=== PATIENT | female | born 1950 | race Caucasian/White ===

== ENCOUNTER 2019-05-02 23:50 | Inpatient (IN) ==
[2019-05-03] MEDS: ZOFRAN IV ONE ×2 (00:28→00:58)
[2019-05-03] MEDS ORDERED: NS 1,000 ML IV ONE (00:28)
[2019-05-03] MEDS ORDERED: MORPHINE IM ONE (00:52)
[2019-05-03] MEDS ORDERED: PROTONIX PO ONE (01:38)
[2019-05-03] MEDS ORDERED: G.I. COCKTAIL PO ONE (01:39)
--- NOTE | 2019-05-03 02:08 | PROVIDER DOCUMENTATION ---
This chart was entered by Luz Maria Raymond Scribe, acting as scribe for Leta García MD. HPI-Abdominal Pain/GI Problem - General Source: patient - History of Present Illness-ABD Nature of Presenting Problems: 68 y/o female presents to ED with intermittent, burning epigastric pain and N/V/D onset 2 months ago. Pt reports her symptoms became constant and worse this evening. Pt states she has had a colon resection due to diverticulitis with Dr. Aranda. Pt is alert and oriented. Abdominal Pain Onset Location: reports: epigastric Pain Radiation: reports: no radiation Quality of Pain: reports: burning Severity in ED: reports: severe Onset/Duration: reports: other (2 months ago) Timing: reports: intermittent Activities at Onset: reports: none Exposure to sick contacts?: No Modifying Factors: worse with: palpation Associated Symptoms: reports: diarrhea, nausea, vomiting, other (epigastric pain) Last BM: unsure Dark Stools Present?: reports: none noticed Rectal Bleeding: reports: none Rectal Pain: reports: none Similar Symptoms Previously?: Yes Recently seen or treated by another doctor?: No <Leta García - Last Filed: 05/03/19 02:08> <Lui Olmedo - Last Filed: 05/03/19 06:58> <Molly Quiroz - Last Filed: 05/03/19 10:41> - General Chief Complaint: Abdominal Pain Stated Complaint: PAIN IN MID ABDOMEN/BACK, NAUSEATED Time Seen by Provider: 05/03/19 00:00 Allergies/Adverse Reactions: Patient Allergies Allergy/AdvReac Type Severity Reaction Status Date / Time codeine Allergy NAUSEA Verified 05/03/19 00:14 Review of Systems - Adult - REVIEW OF SYSTEMS - ADULT Constitutional: denies: chills, fever Eyes: reports: no symptoms reported Ears, Nose, Mouth & Throat: reports: no symptoms reported Cardiovascular: denies: chest pain, palpitations Respiratory: denies: cough, shortness of breath Gastrointestinal: reports: abdominal pain, diarrhea, nausea, vomiting Genitourinary: reports: no symptoms reported Musculoskeletal: reports: no symptoms reported Integumentary: reports: no symptoms reported Neurological: reports: no symptoms reported Psychiatric: reports: no symptoms reported Endocrine: reports: no symptoms reported Hematologic/Lymphatic: reports: no symptoms reported Allergic/Immunologic: reports: no symptoms reported All Other Systems: Reviewed and Negative <Leta García - Last Filed: 05/03/19 02:08> Past History - Adult - PAST MEDICAL HISTORY-ADULT Review of Records: reports: Old Records Reviewed, Nursing Assessment Review, Medications Reviewed Major Childhood Illnesses: reports: denies history Cardiovascular: reports: denies history Respiratory: reports: asthma Gastrointestinal: reports: denies history Obstetrical/Gynecological: reports: endometriosis Genitourinary: reports: denies history. denies: kidney stones Musculoskeletal: reports: denies history Neurological: reports: meningitis Endocrine/Immune: reports: denies history Other Conditions: reports: denies history - PRIOR SURGERIES/PROCEDURES Surgical/Procedure History: reports: appendectomy, hysterectomy (with oopherectomy and bladder tacking.), BTL, bowel surgery (colon resection) - IMMUNIZATION STATUS Childhood Immunizations: See Nurse Assessment Flu Vaccine: See Nurse Assessment - FAMILY HISTORY Family History: reviewed, not pertinent - SOCIAL HISTORY Smoking: quit greater than 1 year Substance Use: none/never Alcohol Use Frequency: occasionally Living Situation: family <Leta García - Last Filed: 05/03/19 02:08> Physical Exam-General - PHYSICAL EXAM-ADULT Initial Vital Signs Reviewed: Yes - CONSTITUTIONAL General Appearance: appears well, alert, no apparent distress - EYES Eyes: PERRL/EOMI, pink conjunctivae - HEAD, EARS, NOSE, MOUTH & THROAT HENMT: normocephalic/atraumatic, moist mucous membranes, normal ENT inspection - NECK Neck: non-tender, full range of motion - RESPIRATORY Respiratory: chest non-tender, lungs clear, normal breath sounds - CARDIOVASCULAR Cardiovascular: normal peripheral pulses, regular rate, rhythm - GASTROINTESTINAL (ABDOMEN) Abdominal Exam: normal bowel sounds, soft, tenderness (epigastric) - MUSCULOSKELETAL Back Exam: normal inspection, no CVA tenderness, no vertebral tenderness Extremity: normal range of motion, non-tender - SKIN Integumentary: normal color, warm/dry - NEUROLOGIC Neurologic: grossly normal - PSYCHIATRIC Psych/Mental Status: normal mood/affect, normal thought content, normal thought process, oriented x 3 <Leta García - Last Filed: 05/03/19 02:08> Progress - PLAN OF CARE/RESULTS Progress/Plan/Lab Results: Vital Signs - 8 hr 05/02/19 23:52 Temperature 97.9 F Pulse Rate 74 Respiratory Rate 20 Blood Pressure 170/70 O2 Sat by Pulse Oximetry 95 - REASSESSMENT Reassessment #1 Time Reassessed: 01:37 Status: unchanged (Given Im morphine and zofran. Still epigastric pain. Will give GI cocktail and protonix po) - EKG 1 Time of EKG reading by physician:: 23:59 EKG Read and Signed by:: Leta García EKG Interpretation (*Must complete 3 of following elements*): Abnormal Rate: 67 Rhythm: NSR [place]: normal QRS: other (low voltage QRS; cannot rule out anterior infarct) [place] Interval: normal ST Wave: normal - CHANGE OF SHIFT REPORT (ED Provider) 1 Report Given and Care Transferred to:: Dr Olmedo at the end of my shift Time of Transfer: 02:01 Items Pending: Labs, CT/MRI Results <Leta García - Last Filed: 05/03/19 02:08> - PLAN OF CARE/RESULTS Progress/Plan/Lab Results: Vital Signs - 8 hr 05/02/19 23:52 05/03/19 00:06 05/03/19 00:15 Temperature 97.9 F Pulse Rate 74 78 70 Respiratory Rate 20 26 H 18 Blood Pressure 170/70 O2 Sat by Pulse Oximetry 95 96 97 05/03/19 00:18 05/03/19 00:30 05/03/19 00:45 Temperature Pulse Rate 70 73 71 Respiratory Rate 14 18 13 Blood Pressure 181/72 O2 Sat by Pulse Oximetry 98 99 99 05/03/19 00:48 05/03/19 01:00 05/03/19 01:02 Temperature Pulse Rate 69 74 72 Respiratory Rate 19 24 15 Blood Pressure 167/83 169/91 O2 Sat by Pulse Oximetry 99 97 05/03/19 01:15 05/03/19 01:18 05/03/19 01:30 Temperature Pulse Rate 66 63 75 Respiratory Rate 13 15 14 Blood Pressure 166/88 O2 Sat by Pulse Oximetry 99 97 96 05/03/19 01:45 05/03/19 01:49 05/03/19 02:00 Temperature Pulse Rate 81 77 80 Respiratory Rate 21 18 13 Blood Pressure O2 Sat by Pulse Oximetry 96 97 96 05/03/19 02:15 05/03/19 02:30 05/03/19 02:45 Temperature Pulse Rate 77 74 71 Respiratory Rate 13 14 22 Blood Pressure O2 Sat by Pulse Oximetry 96 94 L 88 L 05/03/19 03:00 05/03/19 03:15 05/03/19 03:30 Temperature Pulse Rate 71 69 71 Respiratory Rate 24 22 13 Blood Pressure O2 Sat by Pulse Oximetry 89 L 87 L 95 05/03/19 03:45 05/03/19 04:00 05/03/19 04:15 Temperature Pulse Rate 68 61 75 Respiratory Rate 15 16 18 Blood Pressure O2 Sat by Pulse Oximetry 97 98 96 05/03/19 04:30 05/03/19 04:45 05/03/19 05:00 Temperature Pulse Rate 66 68 78 Respiratory Rate 16 26 H 19 Blood Pressure O2 Sat by Pulse Oximetry 95 94 L 93 L Laboratory Results - last 24 hr 05/03/19 05/03/19 05/03/19 04:37 05:02 05:02 WBC 6.67 RBC 5.48 H Hgb 14.9 Hct 46.2 MCV 84.3 MCH 27.2 MCHC 32.3 L RDW Std Deviation 13.2 Plt Count 225 MPV 9.4 Immature Gran % (Auto) 0.3 Neut % (Auto) 87.5 H Lymph % (Auto) 7.3 L [place] % (Auto) 4.0 Eos % (Auto) 0.6 Baso % (Auto) 0.3 Immature Gran # (Auto) 0.02 Neut # (Auto) 5.83 Lymph # (Auto) 0.49 L [place] # (Auto) 0.27 Eos # (Auto) 0.04 Baso # (Auto) 0.02 Sodium 139 Potassium 3.9 Chloride 100 Carbon Dioxide 21 L Anion Gap 18 BUN 7 L Creatinine 0.8 Estimated GFR/1.73 m2 > 60 BUN/Creatinine Ratio 9 Glucose 132 H Calculated Osmolality 277 Calcium 9.1 Total Bilirubin 0.44 AST 17 ALT 17 Alkaline Phosphatase 95 Creatine Kinase 40 Troponin T Total Protein 6.4 Albumin 4.2 Globulin 2.2 Albumin/Globulin Ratio 1.9 Amylase 46 Lipase 17 Urine Source CLEAN CATCH Urine Color YELLOW Urine Turbidity CLEAR Urine pH 8.0 Ur Specific [place] 1.015 Urine Protein NEGATIVE Ur Glucose (Stick) NEGATIVE Ur Ketones (Stick) TRACE A Urine Blood SMALL A Urine Nitrite NEGATIVE Urine Bilirubin NEGATIVE Urobilinogen Dipstick NORMAL Urine Leukocytes NEGATIVE Urine WBC (Auto) <10 Urine RBC (Auto) <10 U Epithel Cells (Auto) <10 Urine Bacteria (Auto) NEGATIVE 05/03/19 05:02 WBC RBC Hgb Hct MCV MCH MCHC RDW Std Deviation Plt Count MPV Immature Gran % (Auto) Neut % (Auto) Lymph % (Auto) [place] % (Auto) Eos % (Auto) Baso % (Auto) Immature Gran # (Auto) Neut # (Auto) Lymph # (Auto) [place] # (Auto) Eos # (Auto) Baso # (Auto) Sodium Potassium Chloride Carbon Dioxide Anion Gap BUN Creatinine Estimated GFR/1.73 m2 BUN/Creatinine Ratio Glucose Calculated Osmolality Calcium Total Bilirubin AST ALT Alkaline Phosphatase Creatine Kinase Troponin T < 0.010 Total Protein Albumin Globulin Albumin/Globulin Ratio Amylase Lipase Urine Source Urine Color Urine Turbidity Urine pH Ur Specific [place] Urine Protein Ur Glucose (Stick) Ur Ketones (Stick) Urine Blood Urine Nitrite Urine Bilirubin Urobilinogen Dipstick Urine Leukocytes Urine WBC (Auto) Urine RBC (Auto) U Epithel Cells (Auto) Urine Bacteria (Auto) Orders Category Date Time Status Saline Loc DIRECTED Care 05/03/19 00:27 Active NPO Diet 05/03/19 00:[address] ABD/PELVIS W/IV CONT ONLY [CT] Stat Exams 05/03/19 01:21 Completed US GB < RUQ (LIMITED) [US] Stat Exams 05/03/19 06:45 Ordered AMYLASE [CHEM] Stat Lab 05/03/19 05:02 Completed CBC WITH ELECTRONIC DIFF [HEME] Stat Lab 05/03/19 05:02 Completed CK PROFILE [SP CHEM] Stat Lab 05/03/19 05:02 Completed COMPREHENSIVE METABOLIC PANEL [CHEM] Stat Lab 05/03/19 05:02 Completed LIPASE [CHEM] Stat Lab 05/03/19 05:02 Completed TROPONIN T Stat Lab 05/03/19 05:02 Completed URINALYSIS W/POSS RFLX CULT [URINALYSIS] Stat Lab 05/03/19 04:37 Completed 0.9% Sodium Chloride Inj [Ns] 1,000 ml Med 05/03/19 00:28 Discontinued IV 999 mls/hr Hydromorphone [Dilaudid] Med 05/03/19 04:51 Discontinued 1 mg IV NOW ONE Lido/Gonzalez Alk/Al&mg Hydrox [G.i. Cocktail] Med 05/03/19 01:39 Discontinued 30 ml PO NOW ONE Morphine Med 05/03/19 00:52 Discontinued 4 mg IM NOW ONE Ondansetron [Zofran] Med 05/03/19 00:28 Discontinued 8 mg IV NOW ONE Pantoprazole [Protonix] Med 05/03/19 01:38 Discontinued 40 mg PO NOW ONE EKG [EKG] Stat Ther 05/03/19 00:27 Draft Result Diagrams: 05/03/19 05:02 05/03/19 05:02 - CHANGE OF SHIFT REPORT (ED Provider) 2 Report Given and Care Transferred to:: Dr Quiroz Time of Transfer: 07:00 Items Pending: Labs, Ultrasound Results <Lui Olmedo - Last Filed: 05/03/19 06:58> - PLAN OF CARE/RESULTS Progress/Plan/Lab Results: Vital Signs - 8 hr 05/03/19 02:45 05/03/19 03:00 05/03/19 03:15 Pulse Rate 71 71 69 Respiratory Rate 22 24 22 O2 Sat by Pulse Oximetry 88 L 89 L 87 L 05/03/19 03:30 05/03/19 03:45 05/03/19 04:00 Pulse Rate 71 68 61 Respiratory Rate 13 15 16 O2 Sat by Pulse Oximetry 95 97 98 05/03/19 04:15 05/03/19 04:30 05/03/19 04:45 Pulse Rate 75 66 68 Respiratory Rate 18 16 26 H O2 Sat by Pulse Oximetry 96 95 94 L 05/03/19 05:00 Pulse Rate 78 Respiratory Rate 19 O2 Sat by Pulse Oximetry 93 L Laboratory Results - last 24 hr 05/03/19 05/03/19 05/03/19 04:37 05:02 05:02 WBC 6.67 RBC 5.48 H Hgb 14.9 Hct 46.2 MCV 84.3 MCH 27.2 MCHC 32.3 L RDW Std Deviation 13.2 Plt Count 225 MPV 9.4 Immature Gran % (Auto) 0.3 Neut % (Auto) 87.5 H Lymph % (Auto) 7.3 L [place] % (Auto) 4.0 Eos % (Auto) 0.6 Baso % (Auto) 0.3 Immature Gran # (Auto) 0.02 Neut # (Auto) 5.83 Lymph # (Auto) 0.49 L [place] # (Auto) 0.27 Eos # (Auto) 0.04 Baso # (Auto) 0.02 Sodium 139 Potassium 3.9 Chloride 100 Carbon Dioxide 21 L Anion Gap 18 BUN 7 L Creatinine 0.8 Estimated GFR/1.73 m2 > 60 BUN/Creatinine Ratio 9 Glucose 132 H Calculated Osmolality 277 Calcium 9.1 Total Bilirubin 0.44 AST 17 ALT 17 Alkaline Phosphatase 95 Creatine Kinase 40 Troponin T Total Protein 6.4 Albumin 4.2 Globulin 2.2 Albumin/Globulin Ratio 1.9 Amylase 46 Lipase 17 Urine Source CLEAN CATCH Urine Color YELLOW Urine Turbidity CLEAR Urine pH 8.0 Ur Specific [place] 1.015 Urine Protein NEGATIVE Ur Glucose (Stick) NEGATIVE Ur Ketones (Stick) TRACE A Urine Blood SMALL A Urine Nitrite NEGATIVE Urine Bilirubin NEGATIVE Urobilinogen Dipstick NORMAL Urine Leukocytes NEGATIVE Urine WBC (Auto) <10 Urine RBC (Auto) <10 U Epithel Cells (Auto) <10 Urine Bacteria (Auto) NEGATIVE 05/03/19 05:02 WBC RBC Hgb Hct MCV MCH MCHC RDW Std Deviation Plt Count MPV Immature Gran % (Auto) Neut % (Auto) Lymph % (Auto) [place] % (Auto) Eos % (Auto) Baso % (Auto) Immature Gran # (Auto) Neut # (Auto) Lymph # (Auto) [place] # (Auto) Eos # (Auto) Baso # (Auto) Sodium Potassium Chloride Carbon Dioxide Anion Gap BUN Creatinine Estimated GFR/1.73 m2 BUN/Creatinine Ratio Glucose Calculated Osmolality Calcium Total Bilirubin AST ALT Alkaline Phosphatase Creatine Kinase Troponin T < 0.010 Total Protein Albumin Globulin Albumin/Globulin Ratio Amylase Lipase Urine Source Urine Color Urine Turbidity Urine pH Ur Specific [place] Urine Protein Ur Glucose (Stick) Ur Ketones (Stick) Urine Blood Urine Nitrite Urine Bilirubin Urobilinogen Dipstick Urine Leukocytes Urine WBC (Auto) Urine RBC (Auto) U Epithel Cells (Auto) Urine Bacteria (Auto) Orders Category Date Time Status Saline Loc DIRECTED Care 05/03/19 00:27 Active NPO Diet 05/03/19 00:[address] ABD/PELVIS W/IV CONT ONLY [CT] Stat Exams 05/03/19 01:21 Completed US GB < RUQ (LIMITED) [US] Stat Exams 05/03/19 06:45 Completed AMYLASE [CHEM] Stat Lab 05/03/19 05:02 Completed CBC WITH ELECTRONIC DIFF [HEME] Stat Lab 05/03/19 05:02 Completed CK PROFILE [SP CHEM] Stat Lab 05/03/19 05:02 Completed COMPREHENSIVE METABOLIC PANEL [CHEM] Stat Lab 05/03/19 05:02 Completed LIPASE [CHEM] Stat Lab 05/03/19 05:02 Completed TROPONIN T Stat Lab 05/03/19 05:02 Completed URINALYSIS W/POSS RFLX CULT [URINALYSIS] Stat Lab 05/03/19 04:37 Completed 0.9% Sodium Chloride Inj [Ns] 1,000 ml Med 05/03/19 00:28 Discontinued IV 999 mls/hr Hydromorphone [Dilaudid] Med 05/03/19 04:51 Discontinued 1 mg IV NOW ONE Lido/Gonzalez Alk/Al&mg Hydrox [G.i. Cocktail] Med 05/03/19 01:39 Discontinued 30 ml PO NOW ONE Morphine Med 05/03/19 00:52 Discontinued 4 mg IM NOW ONE Ondansetron [Zofran] Med 05/03/19 08:37 Discontinued 4 mg IV NOW ONE Ondansetron [Zofran] Med 05/03/19 00:28 Discontinued 8 mg IV NOW ONE Pantoprazole [Protonix] Med 05/03/19 01:38 Discontinued 40 mg PO NOW ONE Piperacillin/Tazobactam [Zosyn] 4.5 gm Med 05/03/19 08:37 Discontinued 0.9% Sodium Chloride Inj [Ns] 100 ml IV NOW EKG [EKG] Stat Ther 05/03/19 00:27 Draft Result Diagrams: 05/03/19 05:02 05/03/19 05:02 - REASSESSMENT Reassessment #2 Time Reassessed: 08:40 Status: unchanged Reassessment Comment: US suggestive of cholecystitis. d/w Dr Aranda, admit - ULTRASOUND (By Radiology) 1 US Study: Gallbladder Impression: Abnormal, See EMR Report - CONSULTS/PCP/HOSPITALIST Notification #1 *Consult/PCP/Hospitalist*: Dr Aranda Time Discussed: 08:50 Consult Disposition: Admit (advised admission to surgical services) <Molly Quiroz - Last Filed: 05/03/19 10:41> Departure <Leta García - Last Filed: 05/03/19 02:08> <Lui Olmedo - Last Filed: 05/03/19 06:58> - Departure Date of Disposition Decision: 05/03/19 Time of Disposition Decision: 09:00 Certified Medical Emergency: Emergent - Critical Care Note This patient required my direct & personal management of CC.: No <Molly Quiroz - Last Filed: 05/03/19 10:41> - Departure DIAGNOSIS: Cholecystitis Disposition: ADMITTED INPATIENT 09 Condition: Stable Referrals and Follow-Ups: None,PCP [Primary Care Provider] - Attestation - Physician/ MYCHAL Attestation Patient care was provided by Advanced Practice Provider:: No The physician spent face to face time with patient:: Yes Advanced Practice Provider documentation review:: Supervising physician onsite and consulted in the evaluation and care of this patient. The physician did have a face to face encounter with the patient. <Leta García - Last Filed: 05/03/19 02:08> - Physician/ MYCHAL Attestation Patient care was provided by Advanced Practice Provider:: No The physician spent face to face time with patient:: Yes Advanced Practice Provider documentation review:: Supervising physician onsite and consulted in the evaluation and care of this patient. The physician did have a face to face encounter with the patient. <Molly Quiroz - Last Filed: 05/03/19 10:41> This chart was documented by the indicated scribe, (Luz Maria Raymond Scribe) and accurately reflects the services I performed and decisions made by me, Leta García MD, as attested by the provider's signature.
--- NOTE | 2019-05-03 03:46 | EKG Report ---
Test Performed on : 05/02/2019 11:59:44 PM Test Reason : epigastric pain Blood Pressure : / mmHG Vent. Rate : 067 BPM Atrial Rate : 067 BPM P-R Int : 162 ms QRS Dur : 080 ms QT Int : 408 ms P-R-T Axes : 068 -12 071 degrees QTc Int : 431 ms Normal sinus rhythm. Low voltage QRS Cannot rule out Anterior infarct , age undetermined Abnormal ECG No previous ECGs available Unconfirmed Result
[2019-05-03 04:49] LABS: URINE SOURCE CLEAN CATCH
[2019-05-03] MEDS ORDERED: DILAUDID IV ONE (04:51)
[2019-05-03 04:59] LABS: BILIRUBIN URINE NEGATIVE (NEGATIVE); BLOOD URINE SMALL (NEGATIVE); COLOR YELLOW; GLUCOSE URINE NEGATIVE (NEGATIVE); KETONE URINE TRACE mg/dL (NEGATIVE); LEUKOCYTES URINE NEGATIVE (NEGATIVE); NITRITE URINE NEGATIVE (NEGATIVE); PROTEIN URINE NEGATIVE (NEGATIVE); SP GRAVITY URINE 1.015; TURBIDITY URINE CLEAR (CLEAR); UROBILINOGEN URINE NORMAL (NORMAL)
[2019-05-03 05:01] LABS: UR EPITHELIAL CELLS <10 /HPF (<10); URINE BACTERIA NEGATIVE /HPF; URINE RBC <10 /HPF (<10); URINE WBC <10 /HPF (<10)
[2019-05-03 05:34] LABS: BASO# 0.02 X1000 (0.0-0.2); BASO% 0.3 % (0.0-0.8); EOS# 0.04 X1000 (0.0-0.7); EOS% 0.6 % (0.0-10.0); HEMATOCRIT 46.2 % (37.0-47.0); HEMOGLOBIN 14.9 g/dL (12.0-16.0); IMM GRAN# 0.02 X1000 (0.0-0.04); IMM GRAN% 0.3 % (0.0-0.5); LYMPH# 0.49 X1000 (1.2-3.4); LYMPH% 7.3 % (20.5-51.1); MCH 27.2 PG (27-31); MCHC 32.3 g/dL (33-37); MCV 84.3 FL (81-99); MONO# 0.27 X1000 (0.11-0.59); MPV 9.4 FL (7.4-10.4); NEUT# 5.83 X1000 (1.4-6.5); NEUT% 87.5 % (42.2-75.2); PLT 225 X1000 (130-400); RBC 5.48 XMIL (4.2-5.4); RDW 13.2 % (11.5-14.5); WBC 6.67 X1000 (4.8-10.8)
[2019-05-03 05:38] LABS: AGAP 18; ALB/GLOB RATIO 1.9; ALBUMIN 4.2 g/dL (3.5-5.0); ALKALINE PHOSPHATASE 95 U/L (32-104); AMYLASE 46 U/L (20-200); BUN 7 mg/dL (8-22); CALCIUM 9.1 mg/dL (8.8-10.2); CHLORIDE 100 mmol/L (98-107); CK PROFILE 40 U/L (24-173); COSMO 277; CREATININE 0.8 mg/dL (0.5-0.9); ESTIMATED GFR > 60; GLUCOSE 132 mg/dL (70-104); GOT 17 U/L (10-30); GPT 17 U/L (10-36); LIPASE 17 U/L (13-60); POTASSIUM 3.9 mmol/L (3.5-5.1); SODIUM 139 mmol/L (136-145); TCO2 21 mmol/L (25-35); TOTAL BILIRUBIN 0.44 mg/dL (0.20-1.00); TOTAL PROTEIN 6.4 g/dL (6.3-8.3)
--- NOTE | 2019-05-03 06:32 | Diag Imaging Result Doc PS360 ---
CT ABD/PELVIS W/IV CONT ONLY - 05/03/2019 INDICATION: severe abdo pain COMPARISON: 01/15/2015 FINDINGS: Aside from some linear atelectasis, the lung bases are clear. Heart size is normal with no pericardial effusion. There is fatty change of the liver. There is moderate wall thickening of the gallbladder. The pancreas, spleen, adrenals, and kidneys are normal. There is severe diverticulosis of the distal colon. No bowel obstruction or inflammation. Uterus is absent. Urinary bladder and rectum are normal. There are moderate degenerative changes of the spine. No acute or suspicious bony lesion. IMPRESSION: 1. Possible cholecystitis. Gallbladder ultrasound recommended. 2. Hepatic steatosis. 3. This report was discussed with Dr. Olmedo on 05/03/2019 at 6:30 AM and was readback. This exam was performed using automated exposure control, adjustment of mA or kV according to patient size, and/or use of iterative reconstruction technique Electronically signed by Gael Graham 05/03/2019 6:29 AM
--- NOTE | 2019-05-03 07:33 | Diag Imaging Result Doc PS360 ---
EXAM: US GB < RUQ (LIMITED) HISTORY: abdo pain, possible GB TECHNIQUE: Right upper quadrant ultrasound COMPARISON: Recent CT FINDINGS: Normal right kidney. No hydronephrosis. Normal pancreatic body. The head and tail are obscured. There is fatty infiltration of the liver. The common bile duct measures 3 mm. There is thickening to the gallbladder wall and there are several stones within the gallbladder. No ascites in the right upper quadrant. IMPRESSION: 1.Findings consistent with cholecystitis 2.There is fatty infiltration of the liver Electronically signed by Rush Little 05/03/2019 7:31 AM
[2019-05-03] MEDS ORDERED: ZOFRAN IV ONE (08:37)
[2019-05-03] MEDS ORDERED: ZOSYN 4.5 GM in NS 100 ML IV ONE (08:37)
[2019-05-03] MEDS ORDERED: FLU VACCINE IM ONE (15:17)
[2019-05-03] MEDS: NS 1,000 ML IV SCH (17:32)
[2019-05-03] MEDS: NORCO-10 PO PRN ×2 (17:32→22:59)
[2019-05-03] MEDS: ZOSYN 3.375 GM in NS 50 ML IV SCH ×2 (17:32→22:59)
--- NOTE | 2019-05-03 17:37 | HISTORY AND PHYSICAL ---
CHIEF COMPLAINT: Right upper quadrant pain, nausea and vomiting. HISTORY: This is a pleasant 68-year-old who has been having trouble for a few months with epigastric discomfort. She was scheduled to see me in May, but because of persistent pain, she came to the emergency department. Her imaging shows acute cholecystitis. She has had some diarrhea, nausea and vomiting. MEDICATIONS: She has no medications at home. ALLERGIES: She is allergic to codeine, which causes nausea. PAST SURGICAL HISTORY: Includes an appendectomy, hysterectomy with oophorectomy and a colon resection. FAMILY HISTORY: Noncontributory. SOCIAL HISTORY: She quit smoking greater than a year ago. Denies alcohol or illicit drug use. REVIEW OF SYSTEMS: Negative in all 10 subsystems except as noted above. PHYSICAL EXAMINATION: VITAL SIGNS: Her temperature is 99.5 degrees, heart rate 89, blood pressure 101/65. NECK: No cervical adenopathy. LUNGS: Sound clear. HEART: Regular rate and rhythm. ABDOMEN: Soft. She is mildly tender in the right upper quadrant. No peripheral edema. She is awake and alert. LABORATORY DATA: White count 6700. Chemistry shows normal LFTs. IMAGING: By ultrasound and CT is consistent with cholecystitis as there is a thickened wall with some pericholecystic inflammatory change. ASSESSMENT: Acute cholecystitis. PLAN: IV antibiotics. We will plan a cholecystectomy, laparoscopic approach. I have discussed the procedure, the benefits and risks. She understands and wants to proceed. cc: Rebel Aranda MD
[2019-05-03 23:54] LABS: URINE SOURCE CLEAN CATCH
[2019-05-04 00:01] LABS: BILIRUBIN URINE NEGATIVE (NEGATIVE); BLOOD URINE MODERATE (NEGATIVE); COLOR YELLOW; GLUCOSE URINE NEGATIVE (NEGATIVE); KETONE URINE TRACE mg/dL (NEGATIVE); LEUKOCYTES URINE NEGATIVE (NEGATIVE); NITRITE URINE NEGATIVE (NEGATIVE); PROTEIN URINE TRACE mg/dL (NEGATIVE); TURBIDITY URINE HAZY (CLEAR); UROBILINOGEN URINE NORMAL (NORMAL)
[2019-05-04 00:09] LABS: UR EPITHELIAL CELLS <10 /HPF (<10); URINE BACTERIA NEGATIVE /HPF; URINE RBC <10 /HPF (<10); URINE WBC <10 /HPF (<10)
[2019-05-04 00:34] LABS: URINE CASTS NONE SEEN; URINE CRYSTALS NONE SEEN; URINE SMALL ROUND CELLS NONE SEEN; URINE YEAST NONE SEEN
[2019-05-04] MEDS: DILAUDID IV PRN ×3 (00:58→13:16)
[2019-05-04] MEDS: ZOFRAN IV PRN ×4 (00:59→21:32)
[2019-05-04] MEDS: ZOSYN 3.375 GM in NS 50 ML IV SCH ×4 (05:03→23:09)
[2019-05-04] MEDS ORDERED: SODIUM CHLORIDE 0.9% ONE (07:25)
[2019-05-04] MEDS ORDERED: SENSORCAINE-MPF 0.5%/EPI 1:200,000 ONE (07:25)
[2019-05-04] MEDS ORDERED: LR 1,000 ML ONE (07:25)
[2019-05-04] MEDS ORDERED: XYLOCAINE-MPF 2% ONE (07:26)
[2019-05-04] MEDS ORDERED: DIPRIVAN 1% ONE (07:26)
[2019-05-04] MEDS ORDERED: QUELICIN (DOSE) ONE (07:26)
[2019-05-04] MEDS ORDERED: ROBINUL ONE ×2 (07:26→08:25)
[2019-05-04] MEDS ORDERED: OFIRMEV 1000 MG/ISOTONIC SOLN 1,000 MG/100 ML BOTTLE ONE (08:00)
[2019-05-04] MEDS ORDERED: ZOFRAN ONE (08:00)
[2019-05-04] MEDS ORDERED: TORADOL ONE (08:00)
[2019-05-04] MEDS ORDERED: DECADRON ONE (08:00)
[2019-05-04] MEDS ORDERED: NEOSTIGMINE ONE (08:25)
--- NOTE | 2019-05-04 08:37 | Diag Imaging Result Doc PS360 ---
OPERATIVE CHOLANGIOGRAM - 05/04/2019 INDICATION: GALLBLADDER DX TECHNIQUE: The exam was performed by the patient's surgeon. Three images were obtained. Total fluoroscopy time was 19 seconds. COMPARISON: None FINDINGS: Contrast was infused into the cystic duct. This outlines a normal common bile duct and normal hepatic ducts. There is good passage of contrast into the duodenum. No strictures or filling defect. IMPRESSION: No complication. Electronically signed by Gael Graham 05/04/2019 8:34 AM
[2019-05-04] MEDS ORDERED: NS 1,000 ML ONE (09:01)
--- NOTE | 2019-05-04 11:46 | OPERATIVE NOTE ---
PROCEDURE DATE: 05/04/2019 PROCEDURE PERFORMED: Laparoscopic cholecystectomy with operative cholangiogram. SURGEON: Rebel Aranda M.D. TAG MARKER: Georgi. PREOPERATIVE DIAGNOSIS: Acute and chronic calculous cholecystitis. POSTOPERATIVE DIAGNOSIS: Acute and chronic calculous cholecystitis. FINDINGS: The cholangiogram revealed a normal sized common duct, free flow in the duodenum. No intraluminal filling defects. DESCRIPTION OF PROCEDURE: Satisfactory general endotracheal anesthesia was achieved. The abdomen was prepped and draped in a sterile fashion. We anesthetized the skin above the umbilicus. We incised the skin, dissected down to the fascia, scored the fascia, introduced the 11 trocar in Optiview technique. We insufflated through this trocar under direct visualization, used a 5 trocar midclavicular line, a 5 trocar near the anterior axillary line, an 11 mm trocar in the midepigastrium. We placed the patient in reverse Trendelenburg and turned her to the left. Quite a few adhesions were attached to the fundus of the gallbladder. We dissected them off the fundus, in dissection from the fundus down to the infundibulum. The gallbladder was distended. We decompressed it with the aspirating needle. We then grasped the fundus and reflected it cephalad. We had to grasp the infundibulum with the bulldog. We then continued to dissect the triangle of [place]. We identified the cystic duct. We obtained a critical view. We clipped the cystic duct near the junction of the gallbladder, incised the cystic duct, introduced a Gilberto catheter, shot the cholangiogram, and the findings above were noted. We removed the cholangiogram catheter, clipped the cystic duct on the opposite side or the cystic ductotomy x2, and then transected it. The cystic artery is identified. We clipped it proximally x2, distally x1, and divided it. We then used the cautery spatula to dissect the gallbladder away from the liver. After complete separation of the gallbladder from the liver, we changed the videolaparoscope to the midepigastric trocar. We introduced an EndoCatch, placed the gallbladder within the bag. We delivered it out of the abdominal cavity after slightly enlarging the fascial incision. We looked back. Hemostasis was satisfactory. We aspirated what fluid had collected. We flattened the patient. We used a Jesus-Juana wound closure for the epigastric trocar site. We then desufflated and removed our trocars. We closed the fascia at the umbilicus, supraumbilical incision with 2-0 Polysorb [id number] fascial stitch. We then closed the skin at each incision with 4-0 Polysorb subcuticular stitches. Sterile OpSites were applied. She tolerated it well, and was sent to the recovery room in satisfactory condition. cc: Rebel Aranda MD
[2019-05-04] MEDS ORDERED: PNEUMOVAX 23 IM ONE (15:15)
[2019-05-04] MEDS: NORCO-10 PO PRN (21:33)
[2019-05-04] MEDS: PERIDEX MT SCH (21:34)
[2019-05-05] MEDS: NS 1,000 ML IV SCH (04:56)
[2019-05-05] MEDS: ZOSYN 3.375 GM in NS 50 ML IV SCH (04:56)
[2019-05-05 07:16] VITALS: BP 139/64
[2019-05-05] MEDS: PERIDEX MT SCH (08:02)
--- NOTE | 2019-05-05 09:27 | GENERAL SURGERY PROGRESS NOTE ---
DATE: 05/05/2019 SUBJECTIVE: Ms. Boothe is a first postop day after cholecystectomy. She feels much better today. Her nausea has resolved. Her wounds were fine. We will discharge her today. We discussed activity, wound care and diet. She will return to see me on May 20. She already has some pain medication. cc: Rebel Aranda MD
[2019-05-05] MEDS ORDERED: FLU VACCINE IM ONE (09:41)
== END 2019-05-05 10:10 | disposition home or self-care (01) | DRG 419 ==
LOC: 4N 23:50 → ED 23:50
PROVIDERS: ADMIT Surgery; ATTEND Surgery